=== PATIENT | male | born 1940 | race Caucasian/White ===

== ENCOUNTER 2016-07-08 21:41 | Emergency (ER) | payer MEDICARE, OTHER ==
[~2016-07-08] VITALS: Ht 182.9 cm; Wt 116.0 kg
[2016-07-08] MEDS ORDERED: ASPIRIN 81 MG TAB.CHEW PO ONE (22:00)
[2016-07-08 22:04] LABS: BASO % 1 % (0-3); EOS # 0.3 x10^3/uL (0.0-0.7); EOS % 5 % (0-3); HEMATOCRIT 45.5 % (39.0-53.0); HEMOGLOBIN 15.5 g/dL (13.0-17.5); LYMPH # 2.4 x10^3/uL (1.0-4.8); LYMPH % 37 % (24-48); MEAN CORPUSCULAR HEMOGLOBIN 28 pg (25-35); MEAN CORPUSCULAR HGB CONC 34 g/dL (31-37); MEAN CORPUSCULAR VOLUME 82 fL (79-100); MONO # 0.7 x10^3/uL (0.0-1.1); MONO % 11 % (0-9); NEUT % 47 % (31-73); PLATELET COUNT 215 x10^3/uL (140-400); RED BLOOD COUNT 5.55 x10^6/uL (4.30-5.70); RED CELL DISTRIBUTION WIDTH 13.9 % (11.5-14.5); WHITE BLOOD COUNT 6.5 x10^3/uL (4.0-11.0)
[2016-07-08 22:16] LABS: CALCIUM 9.6 mg/dL (8.5-10.1); CREATININE 1.3 mg/dL (0.7-1.3); DIRECT BILIRUBIN 0.2 mg/dL (0.0-0.2); GFR 53.7; POTASSIUM 3.5 mmol/L (3.5-5.1); TOTAL BILIRUBIN 0.5 mg/dL (0.2-1.0); TOTAL PROTEIN 7.6 g/dL (6.4-8.2)
[2016-07-08] MEDS ORDERED: ACETAMINOPHEN 325 MG TABLET PO ONE (22:30)
--- NOTE | 2016-07-08 22:31 | PHYS DOC ---
Past History Past Medical History: Hypertension Past Surgical History: Appendectomy, Coronary Bypass Surgery, Tonsillectomy, Other Alcohol Use: None Drug Use: None Adult General Chief Complaint Chief Complaint: CHEST PAIN HPI HPI 75-year-old male presenting to the emergency department with chest pain that started around 9:30. His pain is a pressure sensation that is nonradiating mild to moderate and currently a 1 out of 10. 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 He has not taken any aspirin or nitroglycerin prior to arrival. He has a history of CABG in the past. He denies unilateral leg swelling hemoptysis personal or family history of blood clotting disorders. It was associated with nausea and shortness of breath without diaphoresis. Review of systems is negative for abdominal pain vomiting fevers chills or cough. All other review of systems is negative unless otherwise noted in history of present illness. Review of Systems Review of Systems SEE ABOVE. Current Medications Current Medications Current Medications Medications (Trade) Dose Ordered Sig/Compa Start Time Stop Time Status Last Admin Dose Admin Acetaminophen (Tylenol) 650 mg 1X ONCE 07/08/16 22:30 07/08/16 22:31 UNV Aspirin (Children'S Aspirin) 324 mg 1X ONCE 07/08/16 22:00 07/08/16 22:04 DC 07/08/16 21:56 324 MG Allergies Allergies Allergies Coded Allergies Type Severity Reaction Last Updated Verified No Known Drug Allergies 03/04/15 No Physical Exam Physical Exam Constitutional: Well developed, well nourished, no acute distress, non-toxic appearance. [] HENT: Normocephalic, atraumatic, bilateral external ears normal, oropharynx moist, no oral exudates, nose normal. [] Eyes: PERRLA, EOMI, conjunctiva normal, no discharge. [] Neck: Normal range of motion, no tenderness, supple, no stridor. [] Cardiovascular:Heart rate regular rhythm, no murmur [] Lungs & Thorax: Bilateral breath sounds clear to auscultation [] Abdomen: Bowel sounds normal, soft, no tenderness, no masses, no pulsatile masses. [] Skin: Warm, dry, no erythema, no rash. [] Back: No tenderness, no CVA tenderness. [] Extremities: No tenderness, no cyanosis, no clubbing, ROM intact, no edema. [] Neurologic: Alert and oriented X 3, normal motor function, normal sensory function, no focal deficits noted. [] Psychologic: Affect normal, judgement normal, mood normal. [] Current Patient Data Vital Signs Vital Signs Date Time Temp Pulse Resp B/P (MAP) Pulse Ox O2 Delivery O2 Flow Rate FiO2 07/08/16 21:43 98.2 62 20 96 Room Air Lab Results Laboratory Tests Test 07/08/16 21:50 White Blood Count 6.5 x10^3/uL (4.0-11.0) Red Blood Count 5.55 x10^6/uL (4.30-5.70) Hemoglobin 15.5 g/dL (13.0-17.5) Hematocrit 45.5 % (39.0-53.0) Mean Corpuscular Volume 82 fL (79-100) Mean Corpuscular Hemoglobin 28 pg (25-35) Mean Corpuscular Hemoglobin Concent 34 g/dL (31-37) Red Cell Distribution Width 13.9 % (11.5-14.5) Platelet Count 215 x10^3/uL (140-400) Neutrophils (%) (Auto) 47 % (31-73) Lymphocytes (%) (Auto) 37 % (24-48) Monocytes (%) (Auto) 11 % (0-9) H Eosinophils (%) (Auto) 5 % (0-3) H Basophils (%) (Auto) 1 % (0-3) Neutrophils # (Auto) 3.0 x10^3uL (1.8-7.7) Lymphocytes # (Auto) 2.4 x10^3/uL (1.0-4.8) Monocytes # (Auto) 0.7 x10^3/uL (0.0-1.1) Eosinophils # (Auto) 0.3 x10^3/uL (0.0-0.7) Basophils # (Auto) 0.0 x10^3/uL (0.0-0.2) Sodium Level 140 mmol/L (136-145) Potassium Level 3.5 mmol/L (3.5-5.1) Chloride Level 103 mmol/L (98-107) Carbon Dioxide Level 29 mmol/L (21-32) Anion Gap 8 (6-14) Blood Urea Nitrogen 22 mg/dL (8-26) Creatinine 1.3 mg/dL (0.7-1.3) Estimated GFR (Cockcroft-Gault) 53.7 Glucose Level 91 mg/dL (70-99) Calcium Level 9.6 mg/dL (8.5-10.1) Total Bilirubin 0.5 mg/dL (0.2-1.0) Direct Bilirubin 0.2 mg/dL (0.0-0.2) Aspartate Amino Transferase (AST) 21 U/L (15-37) Alanine Aminotransferase (ALT) 28 U/L (16-63) Alkaline Phosphatase 44 U/L (46-116) L Troponin I Quantitative < 0.017 ng/mL (0-0.055) Total Protein 7.6 g/dL (6.4-8.2) Albumin 4.0 g/dL (3.4-5.0) Lipase 257 U/L (73-393) EKG EKG EKG shows sinus rhythm with a regular rate. ST segments congruent. Not suggestive of ACS. [] Radiology/Procedures Radiology/Procedures Chest x-ray reviewed by myself shows no obvious infiltrate or pneumothorax present. No obvious acute cardiopulmonary process present.[] Course & Med Decision Making Course & Med Decision Making Pertinent Labs and Imaging studies reviewed. (See chart for details) [] 75-year-old male presenting to the emergency department today with chest pain. Afebrile with mild hypertension. Otherwise vital signs within normal limits. Patient described the pain to me as 1 out of 10 and resolving at this time. EKG unremarkable. Blood work sent unremarkable. Aspirin given. Tylenol given for headache. The patient was then admitted to Dr. Fatima at [facility] for serial blood testing further evaluation workup and care along with cardiology consultation. 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 Dragon Disclaimer Dragon Disclaimer This chart was dictated in whole or in part using Voice Recognition software in a busy, high-work load, and often noisy Emergency Department environment. It may contain unintended and wholly unrecognized errors or omissions. Departure Departure: Impression: Primary Impression: Chest pain Disposition: ADMITTED INPATIENT Condition: STABLE Referrals: MICHELLE FATIMA MD (PCP) GIUSEPPE SAMS MD July 08, 2016 22:31
[2016-07-08] MEDS ORDERED: NITROGLYCERIN SUBLINGUAL 0.4 MG BOTTLE OF 25. SL PRN (23:00)
[2016-07-08] MEDS ORDERED: MORPHINE SULFATE 2 MG/ML DISP.SYRIN. IV PRN (23:00)
[2016-07-08] MEDS ORDERED: ONDANSETRON PF 4 MG/2 ML VIAL. IV PRN (23:00)
[2016-07-09 00:05] VITALS: BP 157/78
--- NOTE | 2016-07-09 07:45 | EKG ---
[address] [address] Test Date: 2016-07-08 Test Time: 21:56:05 Pat Name: RAYMUNDO BUENROSTRO Department: Room: Gender: M [employer] Technician: VALERIE : 1940 Requested By: GIUSEPPE SAMS Order Number: [id number] Reading MD: Sebastian Foreman Measurements Intervals [place] Rate: 62 P: -26 HI: 180 QRS: -4 QRSD: 92 T: 41 QT: 410 QTc: 418 Interpretive Statements SR CONSISTENT WITH ANTEROSEPTAL INFARCT NON-SPECIFIC ST/T CHANGES Electronically Signed On 07-11-2016 15:26:07 CDT by Sebastian Foreman
--- NOTE | 2016-07-09 08:04 | RAD ---
Portable chest, 07/08/2016: History: Chest pain, shortness of breath Comparison is made to a study from 03/04/2015. There has been a previous median sternotomy. The heart size and pulmonary vascularity are normal. No pulmonary infiltrates are seen. There is no evidence of pleural fluid. IMPRESSION: No acute cardiopulmonary abnormality is detected.
== END 2016-07-09 00:30 | disposition other institution (70) ==
LOC: ER 21:41
DX: R07.89 Other chest pain (principal); R06.02 Shortness of breath; R11.0 Nausea; I10 Essential (primary) hypertension; Z95.1 Presence of aortocoronary bypass graft
CPT/HCPCS: 36415; 71010; 80048; 80076; 83690; 84484; 85027; 93005; 99285-25